=== PATIENT | female | born 1985 | race Caucasian/White ===

== ENCOUNTER 2017-02-07 07:16 | Emergency (ER) | payer OTHER ==
[~2017-02-07] VITALS: Ht 170.2 cm; Wt 91.6 kg
[~2017-02-07 07:16] MED LIST: BCPILLS PO; BUSP15TA70 PO; LEVO25TA5 PO; LITH600C PO; ZIPR60CA PO
[2017-02-07 07:27] VITALS: Ht 170.2 cm; Wt 91.6 kg
--- NOTE | 2017-02-07 08:00 | EMERGENCY ROOM VISIT NOTE ---
History Report prepared by [place]: Brianna Andrade Under the Supervision of: Dr. Juan David Pierre M.D. First contact with patient: 07:36 Chief Complaint: MENTAL HEALTH EVALUATION Stated Complaint: CHILLS,FEVER,MANIC,MONSON,FATIQUE History of Present Illness The patient is a 31 year old female who presents to the Emergency Room with complaints of increasing twyla that began about one month ago. The patient reports that in 2002 she was diagnosed with Bi-polar disorder while in school in [place]. She states that she was seeing a counselor there and was then taken to the hospital and evaluated in their mental health department. The patient states that recently she recently has been feeling similar symptoms related to her bi-polar again. She states that she has had many mood swings, has been irritable, and has had racing thoughts. The patient states that recently she was started on Lamictal and Seroquel, but additionally states that she has been on Townsend for years. She states that over the past week she has had 10-15 hours of sleep total. The patient states that last night she took her Seroquel around 2129, but then could not fall asleep. She states that her thoughts continued to race. The patient states that she feels suicidal to a point, noting that there are times that she feels as if she does not belong. She states that she would never harm herself though. The patient states that recently she has had issues at work with a coworker. She additionally reports that she has been experiencing chills, increased urination, headache, and a decrease in appetite, noting that she feels like she developed an infection. Source of History: patient Onset: one month ago Position: other (global) Quality: other (twyla) Timing: other (increasing) Associated Symptoms: + chills, + headache, + urinary symptoms (increase in urination) Note: Associated Symptoms: insomnia, irritable, mood swings, decrease in appetite Review of Systems See HPI for pertinent positives & negatives. A total of 10 systems reviewed and were otherwise negative. Past Medical & Surgical Medical Problems: (1) Bipolar disorder Surgical Problems: (1) History of tonsillectomy and adenoidectomy Family History Diabetes mellitus Hypertension Kidney disease Kidney stones Seizures Social History Smoking Status: Never Smoker Alcohol Use: none Marital Status: single Housing Status: lives with family Occupation Status: employed Current/Historical Medications Scheduled Control Pills ( Control Pills), 1 TAB PO DAILY Buspirone Hcl (Buspar), 15 MG PO BID Lamotrigine (Lamictal), 100 MG PO HS Levothyroxine Sodium (Levothyroxine Sodium), 25 MCG PO DAILY Townsend Carbonate (Townsend Carbonate), 600 MG PO BID Quetiapine Fumarate (Seroquel), 200 MG PO HS Sulfa/Trimethoprim (Bactrim Ds 800MG/160MG), 1 TAB PO BID Allergies Coded Allergies: No Known Allergies (Unverified , 04/05/16) Physical Exam Vital Signs Date Time Temp Pulse Resp B/P (MAP) Pulse Ox O2 Delivery O2 Flow Rate FiO2 02/07/17 11:56 36.6 95 16 155/98 100 02/07/17 11:55 95 16 155/98 100 Room Air 02/07/17 07:27 36.6 98 16 176/111 100 Room Air Physical Exam GENERAL: Patient is a healthy-appearing well-nourished female HEAD: Normocephalic atraumatic EYES: Ocular movements intact pupils equal and react to light OROPHARYNX mucous membranes are moist no exudates present no erythema or edema present NECK: Supple no nuchal rigidity CHEST: Good equal expansion LUNGS: Clear and equal to auscultation CARDIAC: Normal S1 and S2 ABDOMEN: Soft nontender no guarding BACK: No CVA tenderness EXTREMITIES: No pain upon palpation normal muscle strength in all groups no clubbing cyanosis or edema NEURO: Patient is following commands and answering questions appropriately. Alert and oriented x3 Cranial Nerves 2-12 grossly intact PSYCH: Pressured speech. Medical Decision & Procedures ER Provider Diagnostic Interpretation: X-ray results as stated below per interpretation by me and the radiologist: CHEST ONE VIEW PORTABLE CLINICAL HISTORY: Chills, fever COMPARISON STUDY: 04/05/2016 FINDINGS: The cardiac and mediastinal contours are normal. There is no evidence of focal pulmonary consolidation. There is no evidence of failure. No pleural effusions are visualized.[ IMPRESSION: No active disease in the chest. Electronically signed by: Narayan Villar M.D. 02/07/2017 8:26 AM Dictated Date/Time: 02/07/2017 8:20 AM Laboratory Results 02/07/17 07:59 Red Blood Count 4.16, Mean Corpuscular Volume 93.5, Mean Corpuscular Hemoglobin 31.5, Mean Corpuscular Hemoglobin Concent 33.7, Mean Platelet Volume 11.7, Neutrophils (%) (Auto) 71.1, Lymphocytes (%) (Auto) 19.8, Monocytes (%) (Auto) 6.2, Eosinophils (%) (Auto) 2.5, Basophils (%) (Auto) 0.2, Neutrophils # (Auto) 6.00, Lymphocytes # (Auto) 1.67, Monocytes # (Auto) 0.52, Eosinophils # (Auto) 0.21, Basophils # (Auto) 0.02 02/07/17 07:59 Test 02/07/17 07:37 02/07/17 07:59 02/07/17 08:01 Urine Color YELLOW Urine Appearance CLEAR (CLEAR) Urine pH 8.0 (4.5-7.5) Urine Specific [place] 1.017 (1.000-1.030) Urine Protein NEG (NEG) Urine Glucose (UA) NEG (NEG) Urine Ketones NEG (NEG) Urine Occult Blood NEG (NEG) Urine Nitrite NEG (NEG) Urine Bilirubin NEG (NEG) Urine Urobilinogen NEG (NEG) Urine Leukocyte Esterase MODERATE (NEG) Urine WBC (Auto) 5-10 /hpf (0-5) Urine RBC (Auto) 0-4 /hpf (0-4) Urine Hyaline Casts (Auto) 0 /lpf (0-5) Urine Epithelial Cells (Auto) 10-20 /lpf (0-5) Urine Bacteria (Auto) NEG (NEG) Urine Opiates Screen NEG (NEG) Urine Methadone, Qualitative NEG (NEG) Urine Barbiturates NEG (NEG) Urine Phencyclidine (PCP) Level NEG (NEG) Ur Amphetamine/Methamphetamine NEG (NEG) MDMA (Ecstasy) Screen NEG (NEG) Urine Benzodiazepines Screen NEG (NEG) Urine Cocaine Metabolite NEG (NEG) Urine Marijuana (THC) NEG (NEG) White Blood Count 8.44 K/uL (4.8-10.8) Red Blood Count 4.16 M/uL (4.2-5.4) Hemoglobin 13.1 g/dL (12.0-16.0) Hematocrit 38.9 % (37-47) Mean Corpuscular Volume 93.5 fL (80-100) Mean Corpuscular Hemoglobin 31.5 pg (25-34) Mean Corpuscular Hemoglobin Concent 33.7 g/dl (32-36) Platelet Count 151 K/uL (130-400) Mean Platelet Volume 11.7 fL (7.4-10.4) Neutrophils (%) (Auto) 71.1 % Lymphocytes (%) (Auto) 19.8 % Monocytes (%) (Auto) 6.2 % Eosinophils (%) (Auto) 2.5 % Basophils (%) (Auto) 0.2 % Neutrophils # (Auto) 6.00 K/uL (1.4-6.5) Lymphocytes # (Auto) 1.67 K/uL (1.2-3.4) Monocytes # (Auto) 0.52 K/uL (0.11-0.59) Eosinophils # (Auto) 0.21 K/uL (0-0.5) Basophils # (Auto) 0.02 K/uL (0-0.2) RDW Standard Deviation 46.3 fL (36.4-46.3) RDW Coefficient of Variation 13.5 % (11.5-14.5) Immature Granulocyte % (Auto) 0.2 % Immature Granulocyte # (Auto) 0.02 K/uL (0.00-0.02) Anion Gap 8.0 mmol/L (3-11) Est Creatinine Clear Calc Drug Dose 123.5 ml/min Estimated GFR () 120.3 Estimated GFR (Non- 103.8 BUN/Creatinine Ratio 17.2 (10-20) Calcium Level 9.5 mg/dl (8.5-10.1) Total Bilirubin 0.5 mg/dl (0.2-1) Direct Bilirubin 0.2 mg/dl (0-0.2) Aspartate Amino Transf (AST/SGOT) 31 U/L (15-37) Alanine Aminotransferase (ALT/SGPT) 35 U/L (12-78) Alkaline Phosphatase 66 U/L (45-117) Total Protein 7.0 gm/dl (6.4-8.2) Albumin 4.0 gm/dl (3.4-5.0) Thyroid Stimulating Hormone (TSH) 4.230 uIu/ml (0.300-4.500) Townsend Level 1.1 mMOL/L (0.6-1.2) Ethyl Alcohol mg/dL < 3.0 mg/dl (0-3) Bedside Glucose 63 mg/dl (70-90) Labs reviewed by ED physician. Medications Administered Medications (Trade) Dose Ordered Sig/Jose Eduardo Route Start Time Stop Time Status Last Admin Dose Admin Trimethoprim/ Sulfamethoxazole (Septra Ds 800/ 160MG Tab) 1 tab NOW STAT PO 02/07/17 11:36 02/07/17 11:38 DC 02/07/17 11:48 1 TAB ED Course 0741: Past medical records reviewed. The patient was evaluated in room A6. A complete history and physical examination was performed. 1035: I spoke to the psychiatric nurse liaison at this time. She states that she is going to talk to the patient about possible discharge. 1111: Per the psychiatric nurse liaison, she spoke to the patients psychiatrist and he made medication changes and is okay with the patient being discharged. She states that she went over everything with the patient and the patient is in agreement with the treatment plan. The patient is ready to go home. Medical Decision Differential diagnosis: Etiologies such as mood disorder, infection, hypoglycemia, electrolyte abnormalities, cardiac sources, intracerebral event, toxicologic, neurologic, as well as others were entertained. This is a 31-year-old female who presents emergency department complaining of not being able sleep. The patient recently had medication changes. She denies being suicidal or homicidal here in the emergency department. She is also complaining of urinary symptoms therefore was concerned on Bactrim. She does have white blood cells in her urine. The patient was medically cleared by me. She was evaluated by case management who called the patient's outpatient doctor. He asked for several medication changes which were discussed with the patient. The patient is going to be picked up by her brother who agrees to take care of her. They will return if her symptoms worsen. Medication Reconcilliation Current Medication List: was personally reviewed by me Blood Pressure Screening Patient's blood pressure: Elevated blood pressure Blood pressure disposition: Referred to PCP Impression Primary Impression: Mood disorder Scribe Attestation The scribe's documentation has been prepared under my direction and personally reviewed by me in its entirety. I confirm that the note above accurately reflects all work, treatment, procedures, and medical decision making performed by me. Departure Information Dispostion Home / Self-Care Prescriptions Sulfa/Trimethoprim (Bactrim Ds 800MG/160MG) Tab 1 TAB PO BID for 7 Days, #14 TAB Prov: Juan David Pierre MD 02/07/17 Referrals Avril Zarate M.D. (MEDICAL) (PCP) Forms HOME CARE DOCUMENTATION FORM, IMPORTANT VISIT INFORMATION, School Instructions, Work Instructions Patient Instructions [facility] Additional Instructions STOP Seroquel Zyprexa 5mg at bedtime x 3days Then increase to 10 mg if tolerated Return if symptoms worsen Appt with Dr Magdaleno Feb 12 7 PM You were found to have an elevated blood pressure today (>120 sytolic or >90 diastolic). Per medicare guidelines, you need to follow up with this blood pressure screening with your Primary Care Physician (PCP). For a new PCP call [phone]. You have been examined and treated today on an emergency basis only. This is not a substitute for, or an effort to provide, complete comprehensive medical care. It is impossible to recognize and treat all injuries or illnesses in a single emergency department visit. It is therefore important that you follow up closely with Dr Zarate. Call as soon as possible for an appointment. Thank you for your time and consideration. I look forward to speaking with you again soon. Please don't hesitate to call us if you have any questions.
[2017-02-07 08:17] LABS: BASO % 0.2 %; BASO ABS # 0.02 K/uL (0-0.2); COMPLETE YES; EOS % 2.5 %; HEMATOCRIT 38.9 % (37-47); IG% 0.2 %; LYMPH % 19.8 %; LYMPH ABS # 1.67 K/uL (1.2-3.4); MEAN CELL VOLUME 93.5 fL (80-100); MEAN CORPUSCULAR HEMOGLOBIN 31.5 pg (25-34); MEAN CORPUSCULAR HGB CONC 33.7 g/dl (32-36); MEAN PLATELET VOLUME 11.7 fL (7.4-10.4); MONO % 6.2 %; NEUT % 71.1 %; PLATELET COUNT 151 K/uL (130-400); RED BLOOD COUNT 4.16 M/uL (4.2-5.4); WHITE BLOOD COUNT 8.44 K/uL (4.8-10.8)
--- NOTE | 2017-02-07 08:27 | DIAGNOSTIC IMAGING REPORT ---
CHEST ONE VIEW PORTABLE CLINICAL HISTORY: Chills, fever COMPARISON STUDY: 04/05/2016 FINDINGS: The cardiac and mediastinal contours are normal. There is no evidence of focal pulmonary consolidation. There is no evidence of failure. No pleural effusions are visualized.[ IMPRESSION: No active disease in the chest. Electronically signed by: Narayan Villar M.D. 02/07/2017 8:26 AM Dictated Date/Time: 02/07/2017 8:20 AM
[2017-02-07 08:34] LABS: BUN/CREATININE RATIO 17.2 (10-20); CALCIUM 9.5 mg/dl (8.5-10.1); CREATININE 0.76 mg/dl (0.60-1.20); POTASSIUM 3.6 mmol/L (3.5-5.1)
[2017-02-07 08:42] LABS: URINE APPEARANCE CLEAR (CLEAR); URINE BILIRUBIN NEG (NEG); URINE COLOR YELLOW; URINE NITRITE NEG (NEG); URINE SPECIFIC GRAVITY 1.017 (1.000-1.030); UROBILINOGEN NEG (NEG)
[2017-02-07] MEDS ORDERED: LAMO25TA PO (08:42)
[2017-02-07] MEDS ORDERED: SRQ/200 PO (08:42)
[2017-02-07 08:45] LABS: THYROID STIMULATING HORMONE 4.23 uIu/ml (0.300-4.500)
[2017-02-07 08:53] LABS: MANUAL MICROSCOPIC REQUIRED? NO; REVIEW REQ? NO
[2017-02-07 09:15] LABS: BENZODIAZEPINE, URINE NEG (NEG); COCAINE,URINE NEG (NEG); PHENCYCLIDINE, URINE NEG (NEG)
[2017-02-07] MEDS ORDERED: LAMO100T16 PO (10:22)
[2017-02-07] MEDS ORDERED: SULFAMETHOXAZOLE/TRIMETHOPRIM DS 800/160MG TAB PO STA (11:36)
[2017-02-07] MEDS ORDERED: SULF800T23 PO (11:38)
[2017-02-07 11:56] VITALS: BP 155/98; PULSE 95; TEMP 36.6; O2SAT 100
== END 2017-02-07 11:57 | disposition home or self-care (01) ==
LOC: C.EDB 07:19 → C.EDA 11:57
DX: F31.9 Bipolar disorder, unspecified (principal); Z83.3 Family history of diabetes mellitus; Z82.49 Family history of ischemic heart disease and other diseases of the circulatory system; Z84.1 Family history of disorders of kidney and ureter; Z82.0 Family history of epilepsy and other diseases of the nervous system; Z79.3 Long term (current) use of hormonal contraceptives; Z79.899 Other long term (current) drug therapy